=== PATIENT | female | born 1935 | race Caucasian/White ===

== ENCOUNTER → 2017-01-12 | Outpatient (CLI) | payer MEDICARE, OTHER ==
[~2017-01-12] MED LIST: AMIT50TA13 PO; ASPI81 PO; CLIN150 PO; FLAX100013 PO; GABA300C3 PO; LIDO5T TOP; LOSA25TA31 PO; NOVONP2 SQ; NOVORP2 SQ; OYST500T77 PO; TAB-TAB PO; TOPR25TA2 PO; ZOCO40TA PO
[2017-01-12 16:15] LABS: ANION GAP 6 MEQ/L (5-15); AST (GOT) 48 U/L (15-37); BICARBONATE 28.9 MEQ/L (21.0-32.0); BLOOD UREA NITROGEN 19 MG/DL (7-18); CHLORIDE 107 MEQ/L (98-107); GLOMERULAR FILTRATION RATE 41 ML/MIN (>89); POTASSIUM 4.5 MEQ/L (3.5-5.1); SODIUM (NA) 142 MEQ/L (136-145)
[2017-01-12 16:16] LABS: ALKALINE PHOSPHATASE 79 U/L (45-117); ALT (GPT) 45 U/L (10-53); TOTAL BILIRUBIN ADULT 1.1 MG/DL (0.2-1.0)
[2017-01-12 17:39] LABS: HEMOGLOBIN A1a 0.9 %; HEMOGLOBIN Ao 84.1 %; HEMOGLOBIN F 1.2 %; HEMOGLOBIN LA1C 1.9 %; HEMOGLOBIN P3 3.7 %
== END ==
LOC: PLAB 11:49
PROVIDERS: ATTEND Internal Medicine Endocrinology, Diabetes & Metabolism
DX: I12.9 Hypertensive chronic kidney disease with stage 1 through stage 4 chronic kidney disease, or unspecified chronic kidney disease (principal); N18.3 Chronic kidney disease, stage 3 (moderate); E11.21 Type 2 diabetes mellitus with diabetic nephropathy; E11.22 Type 2 diabetes mellitus with diabetic chronic kidney disease; E78.2 Mixed hyperlipidemia
CPT/HCPCS: 36415; 80053; 83036

== ENCOUNTER → 2017-02-12 | Outpatient (CLI) | payer MEDICARE, OTHER ==
[2017-02-12 14:03] LABS: HDL CHOLESTEROL 62.6 MG/DL (40.0-60.0); INDIRECT BILIRUBIN 0.8 MG/DL (0.0-0.8); TOTAL BILIRUBIN ADULT 0.9 MG/DL (0.2-1.0)
== END ==
LOC: PLAB 09:20
PROVIDERS: ATTEND Family Medicine
DX: E78.2 Mixed hyperlipidemia (principal); R74.8 Abnormal levels of other serum enzymes
CPT/HCPCS: 36415; 80061; 80076

== ENCOUNTER → 2017-05-13 | Outpatient (CLI) | payer MEDICARE, OTHER ==
[2017-05-13 16:14] LABS: ANION GAP 7 MEQ/L (5-15); AST (GOT) 48 U/L (15-37); BICARBONATE 28.4 MEQ/L (21.0-32.0); BLOOD UREA NITROGEN 14 MG/DL (7-18); CHLORIDE 106 MEQ/L (98-107); GLOMERULAR FILTRATION RATE 40 ML/MIN (>89); GLUCOSE,FASTING 158 MG/DL (74-99); POTASSIUM 4.3 MEQ/L (3.5-5.1); SODIUM (NA) 141 MEQ/L (136-145)
[2017-05-13 16:17] LABS: ALKALINE PHOSPHATASE 91 U/L (45-117); ALT (GPT) 44 U/L (10-53); HDL CHOLESTEROL 64.5 MG/DL (40.0-60.0); LDL CHOLESTEROL 139 MG/DL (0-99); TOTAL BILIRUBIN ADULT 0.9 MG/DL (0.2-1.0)
[2017-05-13 22:30] LABS: HEMOGLOBIN Ao 83.5 %; HEMOGLOBIN F 1.1 %; HEMOGLOBIN LA1C 2.3 %
== END ==
LOC: PLAB 10:36
PROVIDERS: ATTEND Family Medicine
DX: E78.2 Mixed hyperlipidemia (principal); N18.3 Chronic kidney disease, stage 3 (moderate); I12.9 Hypertensive chronic kidney disease with stage 1 through stage 4 chronic kidney disease, or unspecified chronic kidney disease; E11.22 Type 2 diabetes mellitus with diabetic chronic kidney disease; E11.21 Type 2 diabetes mellitus with diabetic nephropathy
CPT/HCPCS: 36415; 80053; 80061; 83036

== ENCOUNTER 2017-06-13 10:59 | Emergency (ER) | payer MEDICARE, OTHER ==
[~2017-06-13] VITALS: Ht 154.9 cm; Wt 82.0 kg
[2017-06-13 11:03] VITALS: BP 135/62; PULSE 70; RESP 16; TEMP 98.2; O2SAT 95
[2017-06-13] MEDS ORDERED: TH F1000 PO (11:21)
[2017-06-13] MEDS ORDERED: TOPR25TA PO (11:21)
[2017-06-13] MEDS ORDERED: CALC1TAB12 PO (11:21)
[2017-06-13] MEDS ORDERED: NOVORP2 SQ (11:21)
[2017-06-13] MEDS ORDERED: NOVONP2 SQ ×2 (11:21)
[2017-06-13] MEDS ORDERED: FLEXGEL TOPICAL (11:21)
[2017-06-13] MEDS ORDERED: GABA300C5 PO (11:21)
[2017-06-13] MEDS ORDERED: ASPI81CH CHEW (11:21)
[2017-06-13] MEDS ORDERED: AMIT50TA3 PO (11:21)
[2017-06-13] MEDS ORDERED: LOSA25TA PO (11:21)
[2017-06-13] MEDS ORDERED: ZOCO40TA PO (11:21)
--- NOTE | 2017-06-13 11:36 | PD ---
HPI Chief Complaint: Cold / Flu Symptoms Time Seen by Provider: 11:11 Travel History International Travel<30 days: No Contact w/Intl Traveler<30days: No Traveled to known affect area: No History of Present Illness HPI 82-year-old female presents to the emergency room for evaluation of nasal congestion, sore throat, nonproductive cough, and red/gritty eyes for the past week. Patient states nasal congestion started about a month ago but developed into the rest of the symptoms 1-1.5 weeks ago. She has been taking over-the- counter Mucinex and Tylenol with moderate relief in symptoms. She made an appointment with her primary care physician 2 days ago but was late so they canceled it. She reports associated eye drainage and waking up with her eyes crusted shut. States when she wiped her left eye today she noticed some green discharge. Patient denies changes in visual acuity, eye pain, or photophobia. She denies fever, chills, nausea, vomiting. Denies chest pain, shortness of breath. PFSH Past Medical History Arthritis: Yes (index fingers and back ) Asthma: Yes (occaisionally when ill.) Autoimmune Disease: No Blood Disorders: No Anxiety: Yes (ONLY AFTER SURGERIES) Heart Rhythm Problems: Yes Cancer: Yes (RIGTH BREAST) Cardiovascular Problems: Yes (silent heart attack) High Cholesterol: Yes Chemotherapy: No Chest Pain: No Congestive Heart Failure: No COPD: No Cerebrovascular Accident: No Diabetes: Yes Patient Takes Glucophage: Yes Diminished Hearing: No Endocrine: Yes Gastrointestinal Disorders: Yes GERD: Yes Glaucoma: No Genitourinary: No Headaches: No Hepatitis: No Hiatal Hernia: No Hypertension: Yes Immune Disorder: No Implanted Vascular Access Dvce: Yes Kidney Stones: No Medical other: Yes (ARTHRITIS, ELEVATED CHOLESTEROL) Musculoskeletal: Yes (Spinal stenosis ) Neurologic: No Psychiatric: Yes Reproductive: No Respiratory: Yes Immunizations Current: No Migraines: No Myocardial Infarction: Yes Radiation Therapy: No Renal Failure: No Seizures: Yes Sleep Apnea: Yes (CPap for 2 years) Thyroid Disease: No Ulcer: No ?: Not Menopausal: Yes Past Surgical History Abdominal Surgery: Yes (gallbladder removed 1981) AICD: No Arteriovenous Shunt: No Body Medical Devices: Breast implants from reconstruction, CATARACT IMPLANTS Cardiac Surgery: No Cholecystectomy: Yes Ear Surgery: No Endocrine Surgery: No Eye Surgery: Yes (cataracts and lens implants ) Genitourinary Surgery: No Gynecologic Surgery: Yes (hysterectomy 1971) Hysterectomy: Yes Insulin Pump: No Joint Replacement: No Mastectomy: Yes (RIGHT FIRST THEN LEFT ) Neurologic Surgery: No Oral Surgery: No Pacemaker: No Thoracic Surgery: No Tonsillectomy: Yes Other Surgery: Yes Social History Alcohol Use: No Tobacco Use: No Substance Use: No Allergies-Medications (Allergen,Severity, Reaction): Coded Allergies: bacitracin (Unverified Allergy, Severe, rash, 06/13/17) carisoprodol (Unverified Allergy, Severe, n/v, 06/13/17) cephalexin (Unverified Allergy, Severe, tongue swelling, 06/13/17) codeine (Unverified Allergy, Severe, low blood pressure, 06/13/17) meperidine (Unverified Allergy, Severe, nausea and vomiting, 06/13/17) orphenadrine (Unverified Allergy, Severe, ABD PAINA ND VOMITING, 06/13/17) morphine (Unverified Adverse Reaction, Intermediate, LOW B/P, 06/13/17) Uncoded Allergies: OMNIFLEX (Allergy, Severe, n/v, 11/09/14) , ADHESIVE TAPE (Allergy, Intermediate, RASH, 11/09/14) . primapore dressing (Allergy, Intermediate, large blisters, 11/09/14) . Reported Meds & Prescriptions Reported Meds & Active Scripts Active Erythromycin Opth Oint 5 Mg/Gm Oint 1 Applic EACH EYE QID Augmentin (Amoxicillin-Clavulanate) 875-125 Mg Tab 1 Tab PO BID 10 Days Cleocin (Clindamycin HCl) 150 Mg Cap 300 Mg PO Q6 Reported Calcium 500 +D (Calcium Carbonate-Cholecalciferol) 500-400 Mg-Unit Tab 1 Tab PO BID Flax Seed Oil (Flaxseed Oil) 1,000 Mg Capsule 1 Tab PO DAILY Flexall Pain Relieving Topical (Menthol Topical) 7 % Gel 1 Applic TOPICAL DIRECTED PRN Amitriptyline (Amitriptyline HCl) 50 Mg Tab 50 Mg PO HS Zocor (Simvastatin) 40 Mg Tab 40 Mg PO DAILY Toprol XL (Metoprolol Succinate) 25 Mg Tab 25 Mg PO DAILY Gabapentin 300 Mg Cap 300 Mg PO DAILY Losartan (Losartan Potassium) 25 Mg Tab 25 Mg PO DAILY Aspirin 81 Mg Chew 81 Mg CHEW DAILY Novolin N Inj (Insulin Human NPH) 1,000 Unit/10 Ml Vial 26 Units SQ DAILY Novolin N Inj (Insulin Human NPH) 1,000 Unit/10 Ml Vial 50 Units SQ HS Novolin R Inj (Insulin Human Regular) 1,000 Unit/10 Ml Vial 0 SQ DIRECTED Sliding Scale As Directed. Lidoderm Patch 5% (Lidocaine HCl) 1 Patch Patch 1 Patch TOP DAILY PRN Apply patch to the most painful area. Patch(es) may remain in place for up to 12 hours in any 24 hour period. Flax Seed Oil (Flaxseed (Linseed)) 1,000 Mg Cap 1 Cap PO DAILY Novolin N (Insulin Human NPH) 100 Units/Ml Inj 50 Units SQ HS Novolin R (Insulin Human Regular) 100 Units/Ml Inj 0 SQ DIRECTED Gabapentin 300 Mg Cap 300 Mg PO HS Cozaar (Losartan Potassium) 25 Mg Tab 25 Mg PO DAILY Calcium 500 Mg Tab 500 Mg PO BID Multivitamin (Multivitamins) 1 Tab Tab 1 Tab PO DAILY Toprol Xl (Metoprolol Succinate) 25 Mg Tabcr 25 Mg PO HS Zocor 40 mg (Simvastatin) 40 Mg Tab 40 Mg PO HS Aspirin 81 Mg Tab 81 Mg PO DAILY Elavil (Amitriptyline HCl) 50 Mg Tab 50 Mg PO HS Review of Systems Except as stated in HPI: all other systems reviewed are Neg Physical Exam Narrative GENERAL: Well-nourished, well-developed female in no acute distress. Afebrile. Ambulatory. Resting comfortably in bed. SKIN: Focused skin assessment warm/dry. HEAD: Normocephalic. EYES: PERRL, EOMI, no discharge or injection. No scleral icterus. ENT: Mucosa pink and moist. Moderate erythema without edema or exudates. No uvular edema. No uvular, palatal, or tonsillar deviation. Airway patent. Nasal turbinates appear normal without nasal blood, purulent drainage or septal hematoma. EARS: Bilateral pinnae and external canals appear within normal limits. Bilateral tympanic membranes without erythema, dullness or perforation. NECK: Supple, trachea midline. No JVD or lymphadenopathy. CARDIOVASCULAR: Regular rate and rhythm without murmurs, gallops, or rubs. RESPIRATORY: Breath sounds equal bilaterally. No accessory muscle use. No crackles, rales, wheezes, or rhonchi. Data Data Last Documented VS Vital Signs Date Time Temp Pulse Resp B/P (MAP) Pulse Ox O2 Delivery O2 Flow Rate FiO2 06/13/17 11:03 98.2 70 16 135/62 (86) 95 MDM Medical Decision Making Medical Screen Exam Complete: Yes Emergency Medical Condition: Yes Medical Record Reviewed: Yes Differential Diagnosis Conjunctivitis, sinusitis, URI, pneumonia, bronchitis Narrative Course 82-year-old female presents to the emergency room for evaluation of bilateral eye redness, gritty feeling, drainage, sore throat, nonproductive cough, and congestion for the past week. Patient states congestion started about a month ago and progressed into the other symptoms. There has been no fever, chills, nausea, or vomiting. Patient is afebrile and well-appearing in the emergency room. Vital signs stable. Resting comfortably in bed. There is no increased work of breathing. Lung sounds are clear and equal bilaterally. Coughing infrequently. Throat is moderately erythematous without exudates or edema. Eye exam reveals bilateral moderate injection without obvious drainage or tearing. EOMI without pain. Positive red light reflex bilaterally. Visual acuity is 20/25 in the right and 20/30 in the left. History and physical exam are consistent with sinusitis and conjunctivitis; no indication for workup at this time. Given duration of symptoms, patient will be treated for bacterial sinusitis with Augmentin. She was also discharged with a prescription for erythromycin eye ointment. Told to follow up with her primary care physician or return immediately for any worsening symptoms. She understands and agrees to plan. Diagnosis Primary Impression: Conjunctivitis Qualified Codes: H10.33 - Unspecified acute conjunctivitis, bilateral Additional Impression: Upper respiratory infection Qualified Codes: J06.9 - Acute upper respiratory infection, unspecified Referrals: Primary Care Physician Patient Instructions: General Instructions Additional Instructions: Rest and drink plenty of fluids. Take Augmentin as directed, until gone. Apply erythromycin ointment as directed, for 5-7 days. Follow up with a primary care physician. Return to emergency room for worsening symptoms, as discussed. Scripts Erythromycin Opth Oint (Erythromycin Opth Oint) 5 Mg/Gm Oint 1 APPLIC EACH EYE QID for Infection, #1 TUBE 0 Refills Prov: Fatimah Caro MD 06/13/17 Amoxicillin-Clavulanate (Augmentin) 875-125 Mg Tab 1 TAB PO BID for Infection for 10 Days, #10 TAB 0 Refills Prov: Fatimah Caro MD 06/13/17 Disposition: 01 DISCHARGE HOME Condition: Stable Cyndi Aguilar Jun 13, 2017 11:36
[2017-06-13] MEDS ORDERED: ERYTOIN10 EACH EYE (11:37)
[2017-06-13] MEDS ORDERED: AUGM875T3 PO (11:37)
== END 2017-06-13 11:45 | disposition home or self-care (01) ==
LOC: PHEFT 10:59
DX: H10.33 Unspecified acute conjunctivitis, bilateral (principal); J06.9 Acute upper respiratory infection, unspecified; M19.90 Unspecified osteoarthritis, unspecified site; J45.909 Unspecified asthma, uncomplicated; I25.2 Old myocardial infarction; E11.9 Type 2 diabetes mellitus without complications; K21.9 Gastro-esophageal reflux disease without esophagitis; I10 Essential (primary) hypertension; E78.00 Pure hypercholesterolemia, unspecified; M48.00 Spinal stenosis, site unspecified; G47.30 Sleep apnea, unspecified; Z79.84 Long term (current) use of oral hypoglycemic drugs
CPT/HCPCS: 99284

== ENCOUNTER → 2017-08-12 | Outpatient (CLI) | payer MEDICARE, OTHER ==
[~2017-08-12] MED LIST changes: +AMIT50TA3 PO; +ASPI81CH CHEW; +AUGM875T3 PO; +CALC1TAB12 PO; +ERYTOIN10 EACH EYE; +FLEXGEL TOPICAL; +GABA300C5 PO; +LOSA25TA PO; +TH F1000 PO; +TOPR25TA PO
[2017-08-12 13:32] LABS: ANION GAP 7 MEQ/L (5-15); AST (GOT) 49 U/L (15-37); BICARBONATE 26.3 MEQ/L (21.0-32.0); BLOOD UREA NITROGEN 24 MG/DL (7-18); CHLORIDE 106 MEQ/L (98-107); GLOMERULAR FILTRATION RATE 41 ML/MIN (>89); POTASSIUM 4.8 MEQ/L (3.5-5.1); SODIUM (NA) 139 MEQ/L (136-145)
[2017-08-12 13:37] LABS: ALKALINE PHOSPHATASE 73 U/L (45-117); ALT (GPT) 42 U/L (10-53); TOTAL BILIRUBIN ADULT 1.1 MG/DL (0.2-1.0)
[2017-08-12 17:06] LABS: HEMOGLOBIN A1a 0.9 %; HEMOGLOBIN Ao 84.4 %; HEMOGLOBIN F 1.1 %; HEMOGLOBIN LA1C 2.1 %; HEMOGLOBIN P3 3.6 %
== END ==
LOC: PLAB 10:20
PROVIDERS: ATTEND Internal Medicine Endocrinology, Diabetes & Metabolism
DX: I12.9 Hypertensive chronic kidney disease with stage 1 through stage 4 chronic kidney disease, or unspecified chronic kidney disease (principal); N18.3 Chronic kidney disease, stage 3 (moderate); E11.21 Type 2 diabetes mellitus with diabetic nephropathy; E11.22 Type 2 diabetes mellitus with diabetic chronic kidney disease; E78.2 Mixed hyperlipidemia
CPT/HCPCS: 36415; 80053; 83036

== ENCOUNTER → 2017-11-03 | Outpatient (CLI) | payer MEDICARE, OTHER ==
[~2017-11-03] MED LIST changes: +ASPI-516 CHEW; -ASPI81CH CHEW
[2017-11-03 13:41] LABS: AUTOMATED NEUTROPHIL # 2.3 TH/MM3 (1.8-7.7); BASOPHIL % 0.7 % (0.0-2.0); EOSINOPHIL # 0.1 TH/MM3 (0-0.4); EOSINOPHIL % 2.8 % (0.0-4.0); HEMATOCRIT 37.5 % (35.0-46.0); HEMOGLOBIN 12.7 GM/DL (11.6-15.3); LYMPH % 36.4 % (9.0-44.0); LYMPHOCYTE # 1.7 TH/MM3 (1.0-4.8); MEAN CELL VOLUME 97.3 FL (80.0-100.0); MEAN CORPUSCULAR HEMOGLOBIN 32.8 PG (27.0-34.0); MEAN CORPUSCULAR HGB CONC 33.7 % (32.0-36.0); MEAN PLATELET VOLUME 9.2 FL (7.0-11.0); MONO % 9.4 % (0.0-8.0); MONOCYTE # 0.4 TH/MM3 (0-0.9); NEUT % 50.7 % (16.0-70.0); PLATELET COUNT 148 TH/MM3 (150-450); RED BLOOD COUNT 3.86 MIL/MM3 (4.00-5.30); RED CELL DISTRIBUTION WIDTH 12.8 % (11.6-17.2); WHITE BLOOD COUNT 4.5 TH/MM3 (4.0-11.0)
[2017-11-03 13:59] LABS: ALBUMIN 3.4 GM/DL (3.4-5.0); AST (GOT) 48 U/L (15-37); BLOOD UREA NITROGEN 18 MG/DL (7-18); CALCIUM 8.7 MG/DL (8.5-10.1); CHLORIDE 108 MEQ/L (98-107); CREATININE 1.29 MG/DL (0.50-1.00); GLOMERULAR FILTRATION RATE 40 ML/MIN (>89); GLUCOSE,FASTING 118 MG/DL (74-99); SODIUM (NA) 142 MEQ/L (136-145)
[2017-11-03 14:00] LABS: CHOLESTEROL 126 MG/DL (120-200)
[2017-11-03 14:06] LABS: ALKALINE PHOSPHATASE 86 U/L (45-117); ALT (GPT) 44 U/L (10-53); CHOLESTEROL/ HDL RATIO 1.85 RATIO; HDL CHOLESTEROL 67.9 MG/DL (40.0-60.0); LDL CHOLESTEROL 36 MG/DL (0-99); TOTAL BILIRUBIN ADULT 0.8 MG/DL (0.2-1.0); TOTAL PROTEIN 6.8 GM/DL (6.4-8.2); TRIGLYCERIDES 113 MG/DL (42-150)
[2017-11-03 16:54] LABS: HEMOGLOBIN A1C 6.3 % (4.3-6.0)
== END ==
LOC: PLAB 11:02
PROVIDERS: ATTEND Family Medicine
DX: I12.9 Hypertensive chronic kidney disease with stage 1 through stage 4 chronic kidney disease, or unspecified chronic kidney disease (principal); N18.3 Chronic kidney disease, stage 3 (moderate); E11.22 Type 2 diabetes mellitus with diabetic chronic kidney disease; E11.21 Type 2 diabetes mellitus with diabetic nephropathy; E78.2 Mixed hyperlipidemia
CPT/HCPCS: 36415; 80053; 80061; 83036; 85025

== ENCOUNTER 2017-11-20 18:28 | Emergency (ER) | payer MEDICARE, OTHER ==
[~2017-11-20] VITALS: Ht 152.4 cm; Wt 87.7 kg
[2017-11-20 18:48] VITALS: BP 118/56; PULSE 65; RESP 16; TEMP 98.5; O2SAT 97
[2017-11-20] MEDS ORDERED: SODIUM CHLORID 0.9% 500 ML INJ 500 ML IV ONE (19:45)
[2017-11-20] MEDS ORDERED: CLINDAMYCIN 600 MG/NS PREMIX 50 ML IV ONE (19:45)
--- NOTE | 2017-11-20 19:46 | PD ---
HPI Chief Complaint: Skin Problem Time Seen by Provider: 19:34 Travel History International Travel<30 days: No Contact w/Intl Traveler<30days: No Traveled to known affect area: No History of Present Illness HPI The patient is a 82-year-old female who presents emergency department for right upper extremity edema and erythema. The patient has a history of breast cancer with remote mastectomy and lymph node removal. The patient has a history of chronic right upper extremity lymphedema with multiple previous cellulitis infections. The patient developed erythema and swelling of the right extremity earlier today and started antibiotics. She does note a temperature as high as 103. The patient took 2 doses of clindamycin earlier today. The patient's primary physician is Dr. Sultana. She denies any previous history of DVT the right upper extremity. She does note the right arm is red, swollen, and warm. She does complain of some generalized malaise. PFSH Past Medical History Hx Anticoagulant Therapy: Yes (asa 81mg po) Arthritis: Yes (index fingers and back ) Asthma: Yes (occaisionally when ill.) Autoimmune Disease: No Blood Disorders: No Anxiety: Yes (ONLY AFTER SURGERIES) Heart Rhythm Problems: Yes Cancer: Yes (RIGTH BREAST) Cardiovascular Problems: Yes (htn on meds, [place] ) High Cholesterol: Yes Chemotherapy: No Chest Pain: No Congestive Heart Failure: No COPD: No Cerebrovascular Accident: No Diabetes: Yes (type 2) Diminished Hearing: No Endocrine: Yes Gastrointestinal Disorders: Yes GERD: Yes Glaucoma: No Genitourinary: No Headaches: No Hepatitis: No Hiatal Hernia: No Hypertension: Yes Immune Disorder: No Implanted Vascular Access Dvce: Yes Kidney Stones: No Musculoskeletal: Yes (Spinal stenosis ) Neurologic: No Psychiatric: Yes Reproductive: No Respiratory: Yes Immunizations Current: No Migraines: No Myocardial Infarction: Yes Radiation Therapy: No Renal Failure: No Seizures: Yes Sleep Apnea: Yes (CPap for 2 years) Thyroid Disease: No Ulcer: No ?: Not Menopausal: Yes Past Surgical History Abdominal Surgery: Yes (gallbladder removed 1981) AICD: No Arteriovenous Shunt: No Body Medical Devices: Breast implants from reconstruction, CATARACT IMPLANTS Cardiac Surgery: No Cholecystectomy: Yes Ear Surgery: No Endocrine Surgery: No Eye Surgery: Yes (cataracts and lens implants ) Genitourinary Surgery: No Gynecologic Surgery: Yes (hysterectomy 1971) Hysterectomy: Yes Insulin Pump: No Joint Replacement: No Mastectomy: Yes (RIGHT FIRST THEN LEFT ) Neurologic Surgery: No Oral Surgery: No Pacemaker: No Thoracic Surgery: No Tonsillectomy: Yes Other Surgery: Yes Social History Alcohol Use: No Tobacco Use: No Substance Use: No Allergies-Medications (Allergen,Severity, Reaction): Coded Allergies: bacitracin (Unverified Allergy, Severe, rash, 11/20/17) carisoprodol (Unverified Allergy, Severe, n/v, 11/20/17) cephalexin (Unverified Allergy, Severe, tongue swelling, 11/20/17) codeine (Unverified Allergy, Severe, low blood pressure, 11/20/17) meperidine (Unverified Allergy, Severe, nausea and vomiting, 11/20/17) orphenadrine (Unverified Allergy, Severe, ABD PAINA ND VOMITING, 11/20/17) morphine (Unverified Adverse Reaction, Intermediate, LOW B/P, 11/20/17) Uncoded Allergies: OMNIFLEX (Allergy, Severe, n/v, 11/20/17) ., ADHESIVE TAPE (Allergy, Intermediate, RASH, 11/20/17) .. primapore dressing (Allergy, Intermediate, large blisters, 11/20/17) .. Reported Meds & Prescriptions Reported Meds & Active Scripts Active Erythromycin Opth Oint 5 Mg/Gm Oint 1 Applic EACH EYE QID Augmentin (Amoxicillin-Clavulanate) 875-125 Mg Tab 1 Tab PO BID 10 Days Cleocin (Clindamycin HCl) 150 Mg Cap 300 Mg PO Q6 Reported Calcium 500 +D (Calcium Carbonate-Cholecalciferol) 500-400 Mg-Unit Tab 1 Tab PO BID Flax Seed Oil (Flaxseed Oil) 1,000 Mg Capsule 1 Tab PO DAILY Flexall Pain Relieving Topical (Menthol Topical) 7 % Gel 1 Applic TOPICAL DIRECTED PRN Amitriptyline (Amitriptyline HCl) 50 Mg Tab 50 Mg PO HS Zocor (Simvastatin) 40 Mg Tab 40 Mg PO DAILY Toprol XL (Metoprolol Succinate) 25 Mg Tab 25 Mg PO DAILY Gabapentin 300 Mg Cap 300 Mg PO DAILY Losartan (Losartan Potassium) 25 Mg Tab 25 Mg PO DAILY Aspirin 81 Mg Chew 81 Mg CHEW DAILY Novolin N Inj (Insulin Human NPH) 1,000 Unit/10 Ml Vial 26 Units SQ DAILY Novolin N Inj (Insulin Human NPH) 1,000 Unit/10 Ml Vial 50 Units SQ HS Novolin R Inj (Insulin Human Regular) 1,000 Unit/10 Ml Vial 0 SQ DIRECTED Sliding Scale As Directed. Lidoderm Patch 5% (Lidocaine HCl) 1 Patch Patch 1 Patch TOP DAILY PRN Apply patch to the most painful area. Patch(es) may remain in place for up to 12 hours in any 24 hour period. Flax Seed Oil (Flaxseed (Linseed)) 1,000 Mg Cap 1 Cap PO DAILY Novolin N (Insulin Human NPH) 100 Units/Ml Inj 50 Units SQ HS Novolin R (Insulin Human Regular) 100 Units/Ml Inj 0 SQ DIRECTED Gabapentin 300 Mg Cap 300 Mg PO HS Cozaar (Losartan Potassium) 25 Mg Tab 25 Mg PO DAILY Calcium 500 Mg Tab 500 Mg PO BID Multivitamin (Multivitamins) 1 Tab Tab 1 Tab PO DAILY Toprol Xl (Metoprolol Succinate) 25 Mg Tabcr 25 Mg PO HS Zocor 40 mg (Simvastatin) 40 Mg Tab 40 Mg PO HS Aspirin 81 Mg Tab 81 Mg PO DAILY Elavil (Amitriptyline HCl) 50 Mg Tab 50 Mg PO HS Review of Systems Except as stated in HPI: all other systems reviewed are Neg General / Constitutional: Positive: Fever HENT: No: Lightheadedness Cardiovascular: No: Chest Pain or Discomfort Respiratory: No: Shortness of Breath Gastrointestinal: No: Nausea, Vomiting Musculoskeletal: Positive: Weakness, Edema, Pain Neurologic: No: Paresthesia, Sensory Disturbance Physical Exam Narrative GENERAL: Awake, alert, pleasant 82-year-old female who appears her stated age and is in no acute respiratory distress. SKIN: Focused skin assessment warm/dry. HEAD: Atraumatic. Normocephalic. EYES: No injection or drainage. ENT: No nasal bleeding or discharge. Mucous membranes pink and moist. NECK: Trachea midline. No JVD. CARDIOVASCULAR: Regular rate and rhythm. No murmur appreciated. RESPIRATORY: No accessory muscle use. Clear to auscultation. Breath sounds equal bilaterally. GASTROINTESTINAL: Abdomen soft, non-tender, nondistended. Hepatic and splenic margins not palpable. MUSCULOSKELETAL: Right upper extremity is erythematous and edematous compared to the left. Positive right radial pulse. Skin is erythematous but blanching. NEUROLOGICAL: Awake and alert. No obvious cranial nerve deficits. Motor grossly within normal limits. Normal speech. PSYCHIATRIC: Appropriate mood and affect; insight and judgment normal. Data Data Last Documented VS Vital Signs Date Time Temp Pulse Resp B/P (MAP) Pulse Ox O2 Delivery O2 Flow Rate FiO2 11/20/17 18:48 98.5 65 16 118/56 (76) 97 Orders Orders Complete Blood Count With Diff (11/20/17 19:41) Comprehensive Metabolic Panel (11/20/17 19:41) Lactic Acid (11/20/17 19:41) Blood Culture (11/20/17 19:41) Us Arm Venous Doppler (11/20/17 ) Clindamycin 600 Mg/Ns Premix (Cleocin 60 (11/20/17 19:45) Sodium Chlorid 0.9% 500 Ml Inj (Ns 500 M (11/20/17 19:45) Labs Laboratory Tests Test 11/20/17 20:22 White Blood Count 8.6 TH/MM3 Red Blood Count 3.90 MIL/MM3 Hemoglobin 12.4 GM/DL Hematocrit 36.7 % Mean Corpuscular Volume 94.0 FL Mean Corpuscular Hemoglobin 31.8 PG Mean Corpuscular Hemoglobin Concent 33.8 % Red Cell Distribution Width 12.4 % Platelet Count 142 TH/MM3 Mean Platelet Volume 8.1 FL Neutrophils (%) (Auto) 65.9 % Lymphocytes (%) (Auto) 25.0 % Monocytes (%) (Auto) 8.4 % Eosinophils (%) (Auto) 0.4 % Basophils (%) (Auto) 0.3 % Neutrophils # (Auto) 5.7 TH/MM3 Lymphocytes # (Auto) 2.2 TH/MM3 Monocytes # (Auto) 0.7 TH/MM3 Eosinophils # (Auto) 0.0 TH/MM3 Basophils # (Auto) 0.0 TH/MM3 CBC Comment DIFF FINAL Differential Comment Blood Urea Nitrogen 21 MG/DL Creatinine 1.40 MG/DL Random Glucose 185 MG/DL Total Protein 7.3 GM/DL Albumin 3.5 GM/DL Calcium Level 8.5 MG/DL Alkaline Phosphatase 75 U/L Aspartate Amino Transf (AST/SGOT) 28 U/L Alanine Aminotransferase (ALT/SGPT) 32 U/L Total Bilirubin 1.4 MG/DL Sodium Level 136 MEQ/L Potassium Level 4.0 MEQ/L Chloride Level 104 MEQ/L Carbon Dioxide Level 28.3 MEQ/L Anion Gap 4 MEQ/L Estimat Glomerular Filtration Rate 36 ML/MIN Lactic Acid Level 1.0 mmol/L MDM Medical Decision Making Medical Screen Exam Complete: Yes Emergency Medical Condition: Yes Medical Record Reviewed: Yes Interpretation(s) Laboratory Tests Test 11/20/17 20:22 White Blood Count 8.6 TH/MM3 Red Blood Count 3.90 MIL/MM3 Hemoglobin 12.4 GM/DL Hematocrit 36.7 % Mean Corpuscular Volume 94.0 FL Mean Corpuscular Hemoglobin 31.8 PG Mean Corpuscular Hemoglobin Concent 33.8 % Red Cell Distribution Width 12.4 % Platelet Count 142 TH/MM3 Mean Platelet Volume 8.1 FL Neutrophils (%) (Auto) 65.9 % Lymphocytes (%) (Auto) 25.0 % Monocytes (%) (Auto) 8.4 % Eosinophils (%) (Auto) 0.4 % Basophils (%) (Auto) 0.3 % Neutrophils # (Auto) 5.7 TH/MM3 Lymphocytes # (Auto) 2.2 TH/MM3 Monocytes # (Auto) 0.7 TH/MM3 Eosinophils # (Auto) 0.0 TH/MM3 Basophils # (Auto) 0.0 TH/MM3 CBC Comment DIFF FINAL Differential Comment Blood Urea Nitrogen 21 MG/DL Creatinine 1.40 MG/DL Random Glucose 185 MG/DL Total Protein 7.3 GM/DL Albumin 3.5 GM/DL Calcium Level 8.5 MG/DL Alkaline Phosphatase 75 U/L Aspartate Amino Transf (AST/SGOT) 28 U/L Alanine Aminotransferase (ALT/SGPT) 32 U/L Total Bilirubin 1.4 MG/DL Sodium Level 136 MEQ/L Potassium Level 4.0 MEQ/L Chloride Level 104 MEQ/L Carbon Dioxide Level 28.3 MEQ/L Anion Gap 4 MEQ/L Estimat Glomerular Filtration Rate 36 ML/MIN Lactic Acid Level 1.0 mmol/L Last Impressions Upper Extremity Ultrasound 11/20/17 0000 Signed Impressions: Service Date/Time: Monday, November 20, 2017 20:51 - CONCLUSION: Normal examination. Marlon Velazquez MD Differential Diagnosis Differential diagnosis includes cellulitis, lymphedema, DVT, sepsis, abscess. Narrative Course IV was established, labs are drawn and sent, and the patient was placed on cardiac telemetry monitoring and continuous pulse oximetry monitoring. Blood culture and lactic acid were sent to lab. The patient received clindamycin 600 mg intravenously as well as 500 cc of normal saline. Ultrasound of the right upper extremity was ordered to rule out DVT. White count is normal. Lactic acid is normal. Ultrasound is negative. The patient's erythema was marked with a surgical marking pen. She is advised to return in 48 hours for reevaluation. She is also advised to follow-up with her primary physician. Return if symptoms worsen or progress. Diagnosis Primary Impression: Cellulitis of arm, right Patient Instructions: General Instructions Additional Instructions: Please provide the patient copy of her ultrasound results and lab results at discharge. Follow-up with her primary physician. Return in 48 hours for reevaluation. Elevate. Continue clindamycin as previously directed. Med/Other Pt SpecificInfo: No Change to Meds Disposition: 01 DISCHARGE HOME Condition: Stable Papi Arias MD Nov 20, 2017 19:46
[2017-11-20 20:30] LABS: AUTOMATED NEUTROPHIL # 5.7 TH/MM3 (1.8-7.7); BASOPHIL % 0.3 % (0.0-2.0); EOSINOPHIL % 0.4 % (0.0-4.0); HEMATOCRIT 36.7 % (35.0-46.0); HEMOGLOBIN 12.4 GM/DL (11.6-15.3); LYMPHOCYTE # 2.2 TH/MM3 (1.0-4.8); MEAN CORPUSCULAR HEMOGLOBIN 31.8 PG (27.0-34.0); MEAN CORPUSCULAR HGB CONC 33.8 % (32.0-36.0); MEAN PLATELET VOLUME 8.1 FL (7.0-11.0); MONO % 8.4 % (0.0-8.0); MONOCYTE # 0.7 TH/MM3 (0-0.9); NEUT % 65.9 % (16.0-70.0); PLATELET COUNT 142 TH/MM3 (150-450); RED CELL DISTRIBUTION WIDTH 12.4 % (11.6-17.2); WHITE BLOOD COUNT 8.6 TH/MM3 (4.0-11.0)
[2017-11-20 20:40] LABS: CHLORIDE 104 MEQ/L (98-107); SODIUM (NA) 136 MEQ/L (136-145)
[2017-11-20 20:42] LABS: ALBUMIN 3.5 GM/DL (3.4-5.0); CALCIUM 8.5 MG/DL (8.5-10.1)
[2017-11-20 20:43] LABS: BICARBONATE 28.3 MEQ/L (21.0-32.0); BLOOD UREA NITROGEN 21 MG/DL (7-18); GLUCOSE,RANDOM 185 MG/DL (74-106)
[2017-11-20 20:46] LABS: ALT (GPT) 32 U/L (10-53); AST (GOT) 28 U/L (15-37); GLOMERULAR FILTRATION RATE 36 ML/MIN (>89)
[2017-11-20 20:47] LABS: TOTAL PROTEIN 7.3 GM/DL (6.4-8.2)
[2017-11-20 20:49] LABS: ALKALINE PHOSPHATASE 75 U/L (45-117)
[2017-11-20 20:58] LABS: TOTAL BILIRUBIN ADULT 1.4 MG/DL (0.2-1.0)
--- NOTE | 2017-11-20 21:14 | RADRPT ---
EXAM DATE/TIME: 11/20/2017 20:51 [facility] COMPARISON: No previous studies available for comparison. INDICATIONS : Right arm swelling. MEDICAL HISTORY : Hypertension. Seizures. Hypercholesterolemia. Myocardial infarction. Anticoagulant therapy, Aspirin 8 1mg. Hypertension. Asthma. Sleep apnea. Gastroesophageal reflux disease. Arthritis. Osteoporosis. Angelia betes. Anxiety. Right breast cancer. Cellulitis. Lymphedema. SURGICAL HISTORY : Tonsillectomy. Cholecystectomy. Bilateral cataract surgery. Bilateral prosthetic lens. Laminectomy. ENCOUNTER: Initial ACUITY: 1 day PAIN SCORE: 0/10 LOCATION: Right arm. FINDINGS: There is spontaneous flow documented in the brachial, basilic, cephalic, axillary, and subclavian vei ns. The vessels are compressible and augmentation response is documented. No filling defects are se en. The flow is phasic with respiration. Direction of flow in the jugular vein is caudal. CONCLUSION: Normal examination. Marlon Velazquez MD on November 20, 2017 at 21:12 Board Certified Radiologist. This report was verified electronically.
[2017-11-20 21:51] VITALS: BP 103/50; PULSE 58; RESP 16; O2SAT 99
== END 2017-11-20 21:56 | disposition home or self-care (01) ==
LOC: PHED 18:28
DX: L03.113 Cellulitis of right upper limb (principal); R53.1 Weakness; J45.909 Unspecified asthma, uncomplicated; I10 Essential (primary) hypertension; E78.00 Pure hypercholesterolemia, unspecified; E11.9 Type 2 diabetes mellitus without complications; K21.9 Gastro-esophageal reflux disease without esophagitis; F41.9 Anxiety disorder, unspecified; M19.90 Unspecified osteoarthritis, unspecified site
CPT/HCPCS: 80053; 83605; 85025; 87040; 93971; 96365; 99284; J7040

== ENCOUNTER → 2018-02-28 | Outpatient (CLI) | payer MEDICARE, OTHER ==
[2018-02-28 14:15] LABS: AUTOMATED NEUTROPHIL # 2.1 TH/MM3 (1.8-7.7); BASOPHIL % 0.7 % (0.0-2.0); EOSINOPHIL # 0.1 TH/MM3 (0-0.4); EOSINOPHIL % 1.6 % (0.0-4.0); HEMATOCRIT 38.2 % (35.0-46.0); HEMOGLOBIN 13.2 GM/DL (11.6-15.3); LYMPH % 40.7 % (9.0-44.0); LYMPHOCYTE # 1.8 TH/MM3 (1.0-4.8); MEAN CELL VOLUME 95.1 FL (80.0-100.0); MEAN CORPUSCULAR HEMOGLOBIN 32.7 PG (27.0-34.0); MEAN CORPUSCULAR HGB CONC 34.4 % (32.0-36.0); MEAN PLATELET VOLUME 9.6 FL (7.0-11.0); MONO % 10.4 % (0.0-8.0); MONOCYTE # 0.5 TH/MM3 (0-0.9); NEUT % 46.6 % (16.0-70.0); PLATELET COUNT 157 TH/MM3 (150-450); RED BLOOD COUNT 4.02 MIL/MM3 (4.00-5.30); RED CELL DISTRIBUTION WIDTH 13.2 % (11.6-17.2); WHITE BLOOD COUNT 4.4 TH/MM3 (4.0-11.0)
[2018-02-28 14:20] LABS: ALBUMIN 3.7 GM/DL (3.4-5.0); AST (GOT) 44 U/L (15-37); BICARBONATE 27.5 MEQ/L (21.0-32.0); BLOOD UREA NITROGEN 22 MG/DL (7-18); CHLORIDE 105 MEQ/L (98-107); CHOLESTEROL 124 MG/DL (120-200); CREATININE 1.41 MG/DL (0.50-1.00); GLOMERULAR FILTRATION RATE 36 ML/MIN (>89); GLUCOSE,FASTING 169 MG/DL (74-99); SODIUM (NA) 142 MEQ/L (136-145)
[2018-02-28 14:24] LABS: ALKALINE PHOSPHATASE 87 U/L (45-117); ALT (GPT) 50 U/L (10-53); CHOLESTEROL/ HDL RATIO 1.82 RATIO; HDL CHOLESTEROL 67.9 MG/DL (40.0-60.0); LDL CHOLESTEROL 37 MG/DL (0-99); TOTAL PROTEIN 7.1 GM/DL (6.4-8.2); TRIGLYCERIDES 96 MG/DL (42-150)
[2018-02-28 16:41] LABS: HEMOGLOBIN A1C 6.9 % (4.3-6.0)
== END ==
LOC: PLAB 10:51
PROVIDERS: ATTEND Internal Medicine Endocrinology, Diabetes & Metabolism
DX: E78.2 Mixed hyperlipidemia (principal); E11.40 Type 2 diabetes mellitus with diabetic neuropathy, unspecified; E11.21 Type 2 diabetes mellitus with diabetic nephropathy; I12.9 Hypertensive chronic kidney disease with stage 1 through stage 4 chronic kidney disease, or unspecified chronic kidney disease; E11.22 Type 2 diabetes mellitus with diabetic chronic kidney disease; N18.3 Chronic kidney disease, stage 3 (moderate)
CPT/HCPCS: 36415; 80053; 80061; 82043; 83036; 85025